=== PATIENT | male | born 1935 | race Caucasian/White ===

== ENCOUNTER 2018-05-08 21:22 | Emergency (ER) | payer MEDICARE, OTHER ==
--- NOTE | 2018-05-08 22:34 | RAD ---
PORTABLE AP CHEST X-RAY: 05/08/2018 HISTORY: Intermittent lightheaded feeling. Increased blood pressure. COMPARISON: 10/31/2015 FINDINGS: The cardiac silhouette is stable in size and is at the upper limits of normal to borderline enlarged. The pulmonary vasculature is within normal limits. The lungs are clear. Vascular calcification is seen in the thoracic aorta. No other interval change. IMPRESSION: 1. No acute cardiopulmonary process. 2. Upper limits of normal to borderline cardiomegaly. POS: [facility]
[2018-05-08 22:36] LABS: #Eosinphils 0.2 thou/uL (0.0-0.7); #Lymphocytes 1.4 thou/uL (1.20-3.40); #Monocytes 0.6 thou/uL (0.11-0.59); #Neutrophils 3.5 thou/uL (1.40-6.50); %Basophils 0.7 % (0.0-1.0); %Eosinophils 3.2 % (0.0-10.0); %Lymphocytes 24.6 % (21.0-51.0); %Monocytes 9.7 % (0.0-10.0); %Neutrophils 61.8 % (42.0-75.0); Mean Corpuscular HGB CONC 33.6 g/dL (32.0-36.0); Mean Corpuscular Hemoglobin 33.5 pg (27.0-31.0); Mean Corpuscular Volume 99.9 fL (78.0-98.0); Mean Platelet Volume 7.3 fL (7.4-10.4); Platelet Count 229 thou/uL (130-400); RBC Distribution Width 11.7 % (11.5-14.5); Red Blood Cell (RBC) Count 4.46 mill/uL (4.70-6.10); White Blood Cell (WBC) Count 5.6 thou/uL (4.8-10.8)
[2018-05-08 22:56] LABS: ALT (SGPT) 14 U/L (8-55); AST (SGOT) 15 U/L (5-34); Albumin 4.3 g/dL (3.4-4.8); Alkaline Phosphatase 68 U/L (40-150); Anion Gap 10 mmol/L (10-20); BUN (Urea Nitrogen) 21 mg/dL (8.4-25.7); Bilirubin, Total 0.5 mg/dL (0.2-1.2); Calc. Creatinine Clearance 0 mL/min (70-130); Calcium 9.7 mg/dL (7.8-10.44); Carbon Dioxide 24 mmol/L (23-31); Chloride 107 mmol/L (98-107); Estimated GFR-MDRD 59; Globulin 2.9 g/dL (2.4-3.5); Glucose 128 mg/dL (83-110); Potassium 3.9 mmol/L (3.5-5.1); Protein, Total 7.2 g/dL (5.8-8.1); Sodium 137 mmol/L (136-145)
[2018-05-08 23:00] LABS: Troponin I Less than 0.010 ng/mL (< 0.028)
[2018-05-08] MEDS ORDERED: Acetaminophen 500 MG TAB ONE (23:21)
--- NOTE | 2018-05-13 13:27 | EKG ---
Test Reason : JOSE MARTIN B/P [facility] Blood Pressure : / mmHG Vent. Rate : 066 BPM Atrial Rate : 066 BPM P-R Int : 238 ms QRS Dur : 170 ms QT Int : 456 ms P-R-T Axes : 064 -81 -03 degrees QTc Int : 478 ms Sinus rhythm with sinus arrhythmia with 1st degree A-V block Right bundle branch block Left anterior fascicular block Bifascicular block Anterior infarct , age undetermined Abnormal ECG Confirmed by VLADIMIR CONNORS ([id number]), digital editor MARY HERRING ([id number]) on 05/13/2018 1:26:38 PM Referred By: Confirmed By:VLADIMIR CONNORS
== END 2018-05-09 00:14 | disposition home or self-care (01) ==
LOC: ERS 21:22
DX: I10 Essential (primary) hypertension (principal); E11.9 Type 2 diabetes mellitus without complications; E78.5 Hyperlipidemia, unspecified
CPT/HCPCS: 36415; 71045; 80053; 82553; 84484; 85025; 93005

== ENCOUNTER 2020-04-30 08:44 | Outpatient (CLI) | payer MEDICARE, OTHER ==
--- NOTE | 2020-04-30 09:41 | MMO ---
Bilateral MAMMO Bilat Diag [facility]. CLINICAL HISTORY: Patient is 85 years old and is seen for diagnostic exam and pain in the left breast. The patient has no family history of breast cancer. The patient has a history of Prostate in 2015. VIEWS: The views performed were: bilateral craniocaudal with tomosynthesis; bilateral mediolateral oblique with tomosynthesis; and bilateral mediolateral with tomosynthesis. This study has been interpreted with the assistance of computer-aided detection. MAMMOGRAM FINDINGS: The breasts are almost entirely fat. There are no suspicious masses, suspicious calcifications, or areas of architectural distortion. There are no mammographic abnormalities to explain the patient's breast pain. The patient is referred back to her clinician. Negative imaging findings should not preclude biopsy if clinical findings are suspicious. IMPRESSION: THERE ARE NO MAMMOGRAPHIC ABNORMALITIES TO EXPLAIN THE PATIENT'S BREAST PAIN. THE PATIENT IS REFERRED BACK TO HER CLINICIAN. NEGATIVE IMAGING FINDINGS SHOULD NOT PRECLUDE BIOPSY IF CLINICAL FINDINGS ARE SUSPICIOUS. THE RESULTS OF THIS EXAM WERE SENT TO THE PATIENT. ACR BI-RADS Category 1 - Negative MAMMOGRAPHY NOTE: 1. A negative mammogram report should not delay a biopsy if a dominant of clinically suspicious mass is present. 2. Approximately 10% to 15% of breast cancers are not detected by mammography. 3. Adenosis and dense breasts may obscure an underlying neoplasm. Reported by: MARIELLE BEDOLLA MD Electonically Signed: [id number]
== END 2020-04-30 08:45 | disposition home or self-care (01) ==
LOC: BICMAMMO 08:44
PROVIDERS: ATTEND Specialist
DX: N64.4 Mastodynia (principal)
CPT/HCPCS: 77066; G0279

== ENCOUNTER 2021-06-03 15:46 | Outpatient (CLI) | payer MEDICARE, OTHER | END 2021-06-03 15:47 | disposition home or self-care (01) | LOC: BICRAD 15:46 | PROVIDERS: ATTEND Specialist | DX: M25.551 Pain in right hip (principal); M16.11 Unilateral primary osteoarthritis, right hip ==

== ENCOUNTER 2021-07-03 08:30 | Outpatient (CLI) | payer MEDICARE, OTHER ==
[~2021-07-03 08:30] MED LIST: Iopamidol-370 76% 500 ML 1 ML ONE
== END 2021-07-03 08:31 | disposition home or self-care (01) ==
LOC: BICCT 08:30
PROVIDERS: ATTEND Otolaryngology Plastic Surgery within the Head & Neck
DX: C32.0 Malignant neoplasm of glottis (principal)
CPT/HCPCS: 70491; Q9967

== ENCOUNTER 2024-04-14 16:31 | Inpatient (IN) | payer MEDICARE ==
[2024-04-14 16:56] LABS: #Basophils Less than 0.03 10x3/uL (0.0-0.2); %Basophils 0.2 % (0.0-1.0); %Monocytes 10.6 % (0.0-10.0); %Neutrophils 69.7 % (42.0-75.0); Hematocrit 39.6 % (42.0-52.0); Hemoglobin 12.9 g/dL (14.0-18.0); Mean Corpuscular HGB CONC 32.6 g/dL (32.0-36.0); Mean Corpuscular Hemoglobin 33.9 pg (27.0-31.0); Mean Corpuscular Volume 103.9 fL (78.0-98.0); Mean Platelet Volume 9.6 fL (7.4-10.4); Platelet Count 171 10x3/uL (130-400); RBC Distribution Width 13.9 % (11.5-14.5); Red Blood Cell (RBC) Count 3.81 mill/uL (4.70-6.10)
[2024-04-14 17:17] LABS: Troponin I Less than 0.010 ng/mL (< 0.028)
[2024-04-14 17:23] LABS: ALT (SGPT) 13 U/L (8-55); AST (SGOT) 22 U/L (5-34); Albumin 3.3 g/dL (3.4-4.8); Alkaline Phosphatase 57 U/L (40-110); Anion Gap 14 mmol/L (10-20); BUN (Urea Nitrogen) 29 mg/dL (8.4-25.7); Bilirubin, Total 0.3 mg/dL (0.2-1.2); Calc. Creatinine Clearance 0 mL/min (70-130); Calcium 9.3 mg/dL (7.8-10.44); Carbon Dioxide 25 mmol/L (23-31); Chloride 109 mmol/L (98-107); Estimated GFR 47; Globulin 2.9 g/dL (2.4-3.5); Glucose 118 mg/dL (83-110); Potassium 4.5 mmol/L (3.5-5.1); Protein, Total 6.2 g/dL (5.8-8.1); Sodium 143 mmol/L (136-145)
[2024-04-14] MEDS ORDERED: Dextrose 50% Abboject 50 ML SYRINGE SLOW IVP PRN (18:31)
[2024-04-14] MEDS ORDERED: Glucagon 1 MG/ML KIT IM PRN (18:31)
[2024-04-14] MEDS ORDERED: Dextrose 5% in Water 1,000 ML IV PRN (18:31)
[2024-04-14] MEDS ORDERED: Insulin Lispro 100 UNIT/ML 10 ML VIAL SC PRN (18:36)
[2024-04-14 19:43] LABS: Magnesium 2.1 mg/dL (1.6-2.6); Phosphorus 3.2 mg/dL (2.3-4.7)
[2024-04-14 20:08] VITALS: BMI 34.9
[2024-04-14 20:12] LABS: Thyroid Stimulating Hormone 1.2328 uIU/mL (0.35-4.94)
[2024-04-14] MEDS: Heparin 5,000 UNITS/ML VIAL SC SCH (21:34)
[2024-04-14] MEDS: Gabapentin 300 MG CAP PO SCH (21:34)
[2024-04-15 05:28] LABS: #Basophils Less than 0.03 10x3/uL (0.0-0.2); %Basophils 0.3 % (0.0-1.0); %Eosinophils 2.4 % (0.0-10.0); %Lymphocytes 13.1 % (21.0-51.0); %Monocytes 9.9 % (0.0-10.0); Mean Corpuscular HGB CONC 32.5 g/dL (32.0-36.0); Mean Corpuscular Hemoglobin 33.7 pg (27.0-31.0); Mean Corpuscular Volume 103.6 fL (78.0-98.0); Mean Platelet Volume 9.8 fL (7.4-10.4); Platelet Count 167 10x3/uL (130-400); RBC Distribution Width 13.8 % (11.5-14.5); Red Blood Cell (RBC) Count 3.86 mill/uL (4.70-6.10)
[2024-04-15 05:44] LABS: ALT (SGPT) 10 U/L (8-55); AST (SGOT) 13 U/L (5-34); Albumin 2.8 g/dL (3.4-4.8); Anion Gap 12 mmol/L (10-20); BUN (Urea Nitrogen) 25 mg/dL (8.4-25.7); Bilirubin, Total 0.4 mg/dL (0.2-1.2); Calc. Creatinine Clearance 61 mL/min (70-130); Calcium 8.9 mg/dL (7.8-10.44); Carbon Dioxide 23 mmol/L (23-31); Chloride 111 mmol/L (98-107); Estimated GFR 56; Globulin 2.5 g/dL (2.4-3.5); Glucose 101 mg/dL (83-110); Potassium 3.9 mmol/L (3.5-5.1); Protein, Total 5.3 g/dL (5.8-8.1); Sodium 142 mmol/L (136-145)
[2024-04-15 06:18] LABS: Alkaline Phosphatase 47 U/L (40-110)
[2024-04-15] MEDS ORDERED: Enoxaparin 40 MG (0.4 mL) SYRINGE SC SCH (09:00)
[2024-04-15] MEDS: Pantoprazole DR 40 MG TAB PO SCH (09:45)
[2024-04-15] MEDS: Cholecalciferol 1,000 UNITS (25 MCG) TAB PO SCH (09:45)
[2024-04-15] MEDS: Multivitamin W/ Minerals 1 TAB PO SCH (09:46)
[2024-04-15] MEDS: hydrALAZINE 25 MG TAB PO SCH (09:46)
[2024-04-15] MEDS: Rosuvastatin 20 MG TAB PO SCH (09:47)
[2024-04-15] MEDS: Temazepam 15 MG CAP PO SCH (09:47)
[2024-04-15] MEDS: Ferrous Sulfate 325 MG TAB PO SCH (09:48)
[2024-04-15] MEDS: Pioglitazone HCl 15 MG TAB PO SCH (09:48)
[2024-04-15] MEDS: dilTIAZem CD 240 MG CAP PO SCH (09:49)
[2024-04-15] MEDS: Febuxostat 40 MG TAB PO SCH (10:03)
[2024-04-15] MEDS: Dapagliflozin Propanediol 10 MG TAB PO SCH (10:03)
[2024-04-16 05:41] LABS: #Basophils Less than 0.03 10x3/uL (0.0-0.2); %Basophils 0.2 % (0.0-1.0); %Eosinophils 0.7 % (0.0-10.0); %Lymphocytes 8.8 % (21.0-51.0); %Monocytes 8.8 % (0.0-10.0); %Neutrophils 81.2 % (42.0-75.0); Hematocrit 40.3 % (42.0-52.0); Hemoglobin 12.9 g/dL (14.0-18.0); Mean Corpuscular Hemoglobin 33.4 pg (27.0-31.0); Mean Corpuscular Volume 104.4 fL (78.0-98.0); Mean Platelet Volume 9.9 fL (7.4-10.4); Platelet Count 168 10x3/uL (130-400); Red Blood Cell (RBC) Count 3.86 mill/uL (4.70-6.10)
[2024-04-16 06:00] LABS: ALT (SGPT) 10 U/L (8-55); AST (SGOT) 13 U/L (5-34); Albumin 2.7 g/dL (3.4-4.8); Alkaline Phosphatase 44 U/L (40-110); Anion Gap 13 mmol/L (10-20); BUN (Urea Nitrogen) 21 mg/dL (8.4-25.7); Bilirubin, Total 0.6 mg/dL (0.2-1.2); Calc. Creatinine Clearance 67 mL/min (70-130); Calcium 8.9 mg/dL (7.8-10.44); Carbon Dioxide 21 mmol/L (23-31); Chloride 108 mmol/L (98-107); Estimated GFR 62; Globulin 2.6 g/dL (2.4-3.5); Glucose 115 mg/dL (83-110); Potassium 3.9 mmol/L (3.5-5.1); Protein, Total 5.3 g/dL (5.8-8.1); Sodium 138 mmol/L (136-145)
[2024-04-16] MEDS: ACETAMINOPHEN 650 MG PO SCH (09:58)
[2024-04-16] MEDS: Potassium Citrate [Potassium] 99 MG Capsule PO SCH (09:59)
[2024-04-16] MEDS: Insulin Lispro 100 UNIT/ML 10 ML VIAL SC PRN (16:49)
[2024-04-16] MEDS: Vancomycin HCl 125 MG Capsule PO SCH (21:22)
[2024-04-17 06:01] LABS: #Basophils Less than 0.03 10x3/uL (0.0-0.2); %Basophils 0.2 % (0.0-1.0); %Eosinophils 1.6 % (0.0-10.0); %Lymphocytes 7.4 % (21.0-51.0); %Monocytes 9.3 % (0.0-10.0); %Neutrophils 80.9 % (42.0-75.0); Hematocrit 37.1 % (42.0-52.0); Hemoglobin 12.3 g/dL (14.0-18.0); Mean Corpuscular HGB CONC 33.2 g/dL (32.0-36.0); Mean Corpuscular Hemoglobin 33.9 pg (27.0-31.0); Mean Corpuscular Volume 102.2 fL (78.0-98.0); Mean Platelet Volume 9.9 fL (7.4-10.4); Platelet Count 153 10x3/uL (130-400); RBC Distribution Width 13.6 % (11.5-14.5); Red Blood Cell (RBC) Count 3.63 mill/uL (4.70-6.10)
[2024-04-17 06:13] LABS: Campy jejuni + coli by PCR Negative (Negative); STEC Shiga Toxin 1+2 Negative (Negative); Salmonella spp. by PCR Negative (Negative); Shigella spp + EIEC by PCR Negative (Negative)
[2024-04-17 06:20] LABS: ALT (SGPT) 10 U/L (8-55); AST (SGOT) 13 U/L (5-34); Albumin 2.6 g/dL (3.4-4.8); Alkaline Phosphatase 43 U/L (40-110); Anion Gap 13 mmol/L (10-20); BUN (Urea Nitrogen) 19 mg/dL (8.4-25.7); Bilirubin, Total 0.7 mg/dL (0.2-1.2); Calc. Creatinine Clearance 64 mL/min (70-130); Calcium 8.7 mg/dL (7.8-10.44); Carbon Dioxide 23 mmol/L (23-31); Chloride 107 mmol/L (98-107); Estimated GFR 59; Globulin 2.6 g/dL (2.4-3.5); Glucose 108 mg/dL (83-110); Potassium 3.5 mmol/L (3.5-5.1); Protein, Total 5.2 g/dL (5.8-8.1); Sodium 139 mmol/L (136-145)
[2024-04-17] MEDS: Saccharomyces boulardii 250 MG CAP PO SCH (10:39)
[2024-04-17 15:24] VITALS: BP 138/61; TEMP 97.5
== END 2024-04-17 16:30 | disposition home or self-care (01) | DRG 309 ==
LOC: ERS 16:31 → 2NO 18:14 → OBSVTOIN 18:57
PROVIDERS: ADMIT Family Medicine; ATTEND Family Medicine
DX: I49.3 Ventricular premature depolarization (principal); A04.72 Enterocolitis due to Clostridium difficile, not specified as recurrent; E78.5 Hyperlipidemia, unspecified; Z85.46 Personal history of malignant neoplasm of prostate; M10.9 Gout, unspecified; N18.31 Chronic kidney disease, stage 3a; I12.9 Hypertensive chronic kidney disease with stage 1 through stage 4 chronic kidney disease, or unspecified chronic kidney disease; E11.22 Type 2 diabetes mellitus with diabetic chronic kidney disease; D63.1 Anemia in chronic kidney disease; Z88.0 Allergy status to penicillin; Z79.899 Other long term (current) drug therapy; Z98.890 Other specified postprocedural states
CPT/HCPCS: 36415; 36416; 71045; 80053; 82607; 83735; 83880; 84100; 84443; 84484; 85025; 87324; 87449; 87505; 93005; 93306; 93880; J1644; J1815